=== PATIENT | female | born 1990 | race Caucasian/White ===

== ENCOUNTER 2016-09-26 22:46 | Emergency (ER) | payer SELFPAY ==
[~2016-09-26 22:46] MED LIST: Sodium Chloride 0.9% 1,000 ML BAG ONE; Sodium Chloride 0.9% 100 ML BAG ONE
[2016-09-26] MEDS ORDERED: diphenhydrAMINE HCl 50 MG/ML 1 ML VIAL ONE (23:55)
[2016-09-26] MEDS ORDERED: Ketorolac Tromethamine 30 MG/ML VIAL ONE (23:55)
[2016-09-26] MEDS ORDERED: Ondansetron HCl/PF 4 MG/2 ML Vial ONE (23:55)
[2016-09-26] MEDS ORDERED: Metoclopramide HCl 10 MG/2 ML VIAL ONE (23:55)
[2016-09-27 00:12] LABS: Bacteria/HPF 3+ HPF (None Seen); Bilirubin Negative (Negative); Blood, Urine Negative (Negative); Clarity Slightly Cloudy (Clear); Glucose, Urine (Dipstick) Negative (Negative); Leukocyte Small (Negative); Nitrite Negative (Negative); Protein, Urine (Dipstick) Negative (Neg-Trace); RBC/HPF 0-3 HPF (0-3); Renal Epithelial 0-3 HPF (0-3); Specific Gravity, Urine 1.025 (1.005-1.030); Transitional Epithelial 0-3 HPF (0-3); Urobilinogen 0.2 mg/dL (0.2-1.0); WBC/HPF 21-50 HPF (0-3); Yeast-All Forms 1+ HPF (None Seen); pH, Urine 5.5 (5.0-9.0)
[2016-09-27] MEDS ORDERED: Sulfameth/Trimethoprim DS 800-160mg TAB ONE (01:04)
== END 2016-09-27 02:22 | disposition home or self-care (01) ==
LOC: MADERS 22:46
DX: G43.909 Migraine, unspecified, not intractable, without status migrainosus (principal); N39.0 Urinary tract infection, site not specified; E11.9 Type 2 diabetes mellitus without complications
CPT/HCPCS: 81001; 87086; 96361; 96374; 96375; J1200; J1885; J2405; J2765; J7050

== ENCOUNTER 2016-10-21 23:52 | Emergency (ER) | payer SELFPAY ==
[2016-10-22] MEDS ORDERED: diphenhydrAMINE HCl 25 MG CAP ONE (00:56)
== END 2016-10-22 01:02 | disposition home or self-care (01) ==
LOC: MADERS 23:52
DX: B86 Scabies (principal); E11.9 Type 2 diabetes mellitus without complications; E28.2 Polycystic ovarian syndrome
CPT/HCPCS: 99282

== ENCOUNTER 2017-02-25 13:11 | Emergency (ER) | payer SELFPAY | END 2017-02-25 14:05 | disposition home or self-care (01) | LOC: MADERS 13:11 | DX: O99.513 Diseases of the respiratory system complicating pregnancy, third trimester (principal); J06.9 Acute upper respiratory infection, unspecified; O24.913 Unspecified diabetes mellitus in pregnancy, third trimester; E11.9 Type 2 diabetes mellitus without complications; Z3A.28 28 weeks gestation of pregnancy | CPT/HCPCS: 99283 ==

== ENCOUNTER 2017-11-17 18:35 | Emergency (ER) | payer OTHER, SELFPAY ==
[2017-11-17] MEDS ORDERED: Dexamethasone 10 MG/ML VIAL ONE (19:06)
== END 2017-11-17 19:27 | disposition home or self-care (01) ==
LOC: MADERS 18:35
DX: J06.0 Acute laryngopharyngitis (principal); I10 Essential (primary) hypertension; E11.9 Type 2 diabetes mellitus without complications
CPT/HCPCS: 96372; J1100

== ENCOUNTER 2018-04-04 20:31 | Emergency (ER) | payer OTHER, SELFPAY ==
--- NOTE | 2018-04-04 23:08 | RAD ---
RIGHT ELBOW FOUR VIEWS: HISTORY: A 27-year-old female with a history of right elbow injury following trauma. FINDINGS/IMPRESSION: No fracture, dislocation, or other significant acute osseous abnormality. POS: CRISTOBALH
== END 2018-04-04 23:15 | disposition home or self-care (01) ==
LOC: MADERS 20:31
DX: S50.01XA Contusion of right elbow, initial encounter (principal); E11.9 Type 2 diabetes mellitus without complications; E66.9 Obesity, unspecified; W22.8XXA Striking against or struck by other objects, initial encounter

== ENCOUNTER 2018-05-17 19:54 | Emergency (ER) | payer SELFPAY ==
[~2018-05-17 19:54] MED LIST changes: -Sodium Chloride 0.9% 1,000 ML BAG ONE; -Sodium Chloride 0.9% 100 ML BAG ONE; +Sodium Chloride Irrig Solution 250 ML BOT ONE
[2018-05-17] MEDS ORDERED: Bacitracin Zinc 1 Packet ONE (20:28)
[2018-05-17] MEDS ORDERED: Adacel (T-DAP) 0.5 ML SYRINGE ONE (20:28)
[2018-05-17] MEDS ORDERED: Amoxicillin/Potassium Clav 875 MG TAB ONE (20:28)
[2018-05-17] MEDS ORDERED: traMADol HCl 50 MG TAB ONE (20:54)
[2018-05-17] MEDS ORDERED: Ibuprofen 800 MG TAB ONE (20:54)
--- NOTE | 2018-05-17 21:27 | RAD ---
RIGHT HAND THREE VIEWS: 05/17/18 HISTORY: Dog bite to thumb. There is an area of lucency and slight irregularity to the cortex involving the mid portion of the pr oximal phalanx of the thumb. This could be directly related to the dog bite injury and more of an imp action type of injury. Clinical correlation as to the exact point of the dog bite. IMPRESSION: Area of lucency in the mid shaft of the proximal phalanx of the thumb possibly the sequela of the dog bite. POS: SANIYA
== END 2018-05-17 22:01 | disposition home or self-care (01) ==
LOC: MADERS 19:54
DX: S61.451A Open bite of right hand, initial encounter (principal); S61.051A Open bite of right thumb without damage to nail, initial encounter; S81.851A Open bite, right lower leg, initial encounter; E11.9 Type 2 diabetes mellitus without complications; F17.210 Nicotine dependence, cigarettes, uncomplicated; W54.0XXA Bitten by dog, initial encounter
CPT/HCPCS: 90471; 90715

== ENCOUNTER 2018-10-10 20:32 | Emergency (ER) | payer SELFPAY | END 2018-10-10 21:17 | disposition home or self-care (01) | LOC: MADERS 20:32 | DX: B30.9 Viral conjunctivitis, unspecified (principal); F17.210 Nicotine dependence, cigarettes, uncomplicated | CPT/HCPCS: 99283 ==

== ENCOUNTER 2019-03-08 16:35 | Emergency (ER) | payer SELFPAY ==
[2019-03-08] MEDS ORDERED: Ibuprofen 800 MG TAB ONE (17:02)
--- NOTE | 2019-03-08 18:03 | RAD ---
Exam:3 views right foot HISTORY: Pain. Fall. COMPARISON: None FINDINGS: Joint spaces are preserved. Lisfranc alignment is maintained. No fracture, cortical irregul arity or periosteal reaction. IMPRESSION: No fracture.
== END 2019-03-08 18:30 | disposition home or self-care (01) ==
LOC: MADERS 16:35
DX: S93.601A Unspecified sprain of right foot, initial encounter (principal); E11.9 Type 2 diabetes mellitus without complications; F17.210 Nicotine dependence, cigarettes, uncomplicated; W17.2XXA Fall into hole, initial encounter

== ENCOUNTER 2019-06-03 11:21 | Emergency (ER) | payer SELFPAY ==
[2019-06-03] MEDS ORDERED: Acetaminophen 500 MG TAB ONE (12:22)
[2019-06-03] MEDS ORDERED: Ondansetron ODT 4 MG TAB ONE (12:35)
--- NOTE | 2019-06-03 13:00 | RAD ---
EXAM: Chest PA and lateral: HISTORY: Fever and cough COMPARISON: 2009 FINDINGS: Lung sandra are clear. Vascular markings are normal. Heart and mediastinum appear unremarkable. Osseous structures are unremarkable. IMPRESSION: Unremarkable chest
== END 2019-06-03 13:14 | disposition home or self-care (01) ==
LOC: MADERS 11:21
DX: B34.9 Viral infection, unspecified (principal); R11.10 Vomiting, unspecified; R73.03 Prediabetes; E28.2 Polycystic ovarian syndrome; F17.210 Nicotine dependence, cigarettes, uncomplicated; Z79.84 Long term (current) use of oral hypoglycemic drugs
CPT/HCPCS: 71046; 87804; Q0162

== ENCOUNTER 2020-05-28 20:44 | Emergency (ER) | payer MEDICAID, SELFPAY ==
[2020-05-28] MEDS ORDERED: Lidocaine 1% 20 ML MDV ONE ×2 (21:00→21:05)
[2020-05-28] MEDS ORDERED: Bacitracin 1 PK ONE (21:11)
== END 2020-05-28 21:41 | disposition home or self-care (01) ==
LOC: MADERS 20:44
DX: S61.432A Puncture wound without foreign body of left hand, initial encounter (principal); E11.9 Type 2 diabetes mellitus without complications; F17.210 Nicotine dependence, cigarettes, uncomplicated; W26.8XXA Contact with other sharp object(s), not elsewhere classified, initial encounter
CPT/HCPCS: 12001

== ENCOUNTER 2021-11-23 10:04 | Emergency (ER) | payer MEDICAID, SELFPAY ==
[2021-11-23] MEDS ORDERED: Dexamethasone 10 MG/ML VIAL ONE (10:50)
[2021-11-23] MEDS ORDERED: Acetaminophen 325 MG TAB ONE (10:50)
[2021-11-23] MEDS ORDERED: Amoxicillin/Potassium Clav 875 MG TAB ONE (10:50)
[2021-11-23] MEDS ORDERED: Benzonatate 100 MG CAP ONE (10:50)
== END 2021-11-23 11:04 | disposition home or self-care (01) ==
LOC: MADERS 10:04
DX: J02.9 Acute pharyngitis, unspecified (principal); E11.9 Type 2 diabetes mellitus without complications; E28.2 Polycystic ovarian syndrome; F17.210 Nicotine dependence, cigarettes, uncomplicated
CPT/HCPCS: 96372; 99283; J1100